=== PATIENT | male | born 2000 | race Two or more races ===

== ENCOUNTER 2025-03-21 07:05 | Emergency (ER) | payer OTHER ==
[2025-03-21 07:12] VITALS: RESP 18
[2025-03-21] MEDS: IBUPROFEN 800 MG TAB PO STA (07:35)
[2025-03-21] MEDS: DEXAMETHASONE SOD PHOSPHATE 4 MG/ML 1 ML VIAL IM STA (07:35)
[2025-03-21] MEDS: HYDROcodone/APAP 5-325MG 1 EACH TAB PO STA (07:36)
--- NOTE | 2025-03-21 07:44 | ED ---
General Adult HPI - General Chief complaint: Back Pain/Injury Stated complaint: Back pain, right leg pain Time Seen by Provider: 03/21/25 07:15 Source: patient, RN notes reviewed, old records reviewed Mode of arrival: wheelchair Limitations: no limitations - History of Present Illness Initial comments: 24-year-old male presents emergency department complaining of back pain with radiation down the posterior right leg. 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 No complications since. States he does have a history of having this type of sciatica pain approximately 3 to 4 years ago. States his lower back pain with radiation into his right buttock and down the posterior aspect of his right leg. Denies any saddle paresthesias. Denies any urinary or bowel incontinence or retention. Denies lower extremity paralysis. States pain is worse with flexion of the right hip. No obvious injuries. Has been present for the last 4 days or so and believes it may have been attributed to him sleeping on an air mattress. Presents for further evaluation at this time. He has attempted stretching at home without much improvement.Patient states back pain is atraumatic. - Related Data Previous Rx's Medication Instructions Recorded Cyclobenzaprine [Flexeril] 5 mg PO TID PRN 7 Days #21 tablet 03/21/25 Allergies Allergy/AdvReac Type Severity Reaction Status Date / Time No Known Allergies Allergy Verified 03/21/25 07:08 Review of Systems ROS Statement: Those systems with pertinent positive or pertinent negative responses have been documented in the HPI. Review of Systems: CONST: Denies fever EYES: Denies blurry vision ENT: Denies nasal congestion C/V: Denies Chest pain RESP: Denies shortness of breath GI: Denies abdominal pain : Denies dysuria SKIN: Denies rash. MSK: Endorses back pain NEURO: Denies headache ROS Other: All systems not noted in ROS Statement are negative. Past Medical History Additional Past Medical History / Comment(s): Tetrology of Will Additional Past Surgical History / Comment(s): 3 open heart Past Psychological History: No Psychological Hx Reported Smoking Status: Never smoker Past Alcohol Use History: None Reported Past Drug Use History: None Reported General Exam - General Exam Comments Initial Comments: General: Appears in mild distress secondary to back pain. HEAD: Normal with no signs of head trauma. EYES: EOMI. ENT: Hearing grossly intact. RESPIRATORY: No respiratory distress. Clear breath sounds bilaterally. C/V: Regular rate and rhythm. S1 and S2 auscultated. ABD: Abdomen is nondistended. EXT: No obvious deformity. No midline cervical, thoracic, lumbar spine tenderness to palpation. Tenderness palpation over the paraspinal muscles on the right of the lower lumbar spine. Pain with flexion of the right hip both passive and active. Neurovascular intact throughout. No obvious step-offs or deformities of the spine. Pelvis is stable. SKIN: No rashes or lesions observed on exposed skin. NEURO: Alert and oriented. Limitations: no limitations Course Vital Signs 03/21/25 07:08 Temperature 97.9 F Pulse Rate 79 Respiratory 18 Rate Blood Pressure 105/76 O2 Sat by Pulse 98 Oximetry Medical Decision Making - Medical Decision Making Was pt. sent in by a medical professional or institution (, PA, [employer], urgent care, hospital, or halfway...) When possible be specific @ -No Did you speak to anyone other than the patient for history (EMS, parent, family, police, friend...)? What history was obtained from this source @ -No Did you review nursing and triage notes (agree or disagree)? Why? @ -I reviewed and agree with nursing and triage notes Were old charts reviewed (outside hosp., previous admission, EMS record, old EKG, old radiological studies, urgent care reports/EKG's, halfway records)? Report findings @ -No old charts were reviewed Differential Diagnosis (chest pain, altered mental status, abdominal pain women, abdominal pain men, vaginal bleeding, weakness, fever, dyspnea, syncope, headache, dizziness, GI bleed, back pain, seizure, CVA, palpatations, mental health, musculoskeletal)? @ -Sciatica, lumbar strain, lumbar fracture, cauda equina syndrome. This list is not all inclusive. EKG interpreted by me (3pts min.). @ -None done X-rays interpreted by me (1pt min.). @ -Lumbar spine x-ray shows bilateral facet arthropathy at L5-S1 with no obvious acute injury. CT interpreted by me (1pt min.). @ -None done U/S interpreted by me (1pt. min.). @ -None done What testing was considered but not performed or refused? (CT, X-rays, U/S, labs)? Why? @ -None What meds were considered but not given or refused? Why? @ -None Did you discuss the management of the patient with other professionals (cuca pappas i.e. , IMAN, [employer], lab, RT, psych nurse, social media manager, stereo plotter operator, teacher, risk control officer, mattress spring encaser)? Give summary @ -No Was smoking cessation discussed for >3mins.? @ -No Was critical care preformed (if so, how long)? @ -No Were there social determinants of health that impacted care today? How? (Homelessness, low income, unemployed, alcoholism, drug addiction, transportation, low edu. Level, literacy, decrease access to med. care, skilled nursing, rehab)? @ -No Was there de-escalation of care discussed even if they declined (Discuss DNR or withdrawal of care, Hospice)? DNR status @ -No What co-morbidities impacted this encounter? (DM, HTN, Smoking, COPD, CAD, Cancer, CVA, ARF, Chemo, Hep., AIDS, mental health diagnosis, sleep apnea, morbid obesity)? @ -None Was patient admitted / discharged? Hospital course, mention meds given and route, prescriptions, significant lab abnormalities, going to OR and other pertinent info. @ -Based on patient's presentation and physical exam, presents emergency department complaining of what appears to be right-sided sciatica pain. We will obtain x-rays of the lumbar spine. This was an atraumatic injury likely associated with how he was sleeping 4 days ago. Does have a history of this. He will be administered an IM injection of Decadron as well as oral [place] and ibuprofen. He was in agreement this plan. Vitals are within acceptable limits. No red flag symptoms to suggest cauda equina syndrome. Lumbar spine x-ray shows bilateral facet arthropathy at L5-S1 with no obvious acute injury. I updated the patient. On reevaluation, patient is having some relief. I recommended rest, ice, as well as continued use of [id number] ibuprofen and Tylenol at home. Patient will be given a starter pack of Tylenol 3's as well as prescription for muscle relaxers. Patient was in agreement this plan. Discussed at length with the patient that if this becomes a persistent issue, he should follow-up with a specialist that will provide him with the early breastfeeding care specialist for the on-call group, Dr. Perkins. Dr. Bell is on city call today for that group but is not a early breastfeeding care specialist. He can also start with his PCP. Recommended stretching. Discussed the red flag symptoms. He was in agreement this plan. I also counseled him on weight loss which may improve his symptoms overall. I will provide the patient with a prescription for Flexeril. I instructed the patient to follow up with their PCP in the next 1-3 days. I provided contact information for follow up with orthopedics. I explained that the patient should return to the emergency department if they experience any worsening symptoms. Strict return precautions were discussed with the patient. The patient expressed understanding of these instructions. I answered all questions that the patient had. The patient was discharged home in good condition with their prescriptions and follow up information. Undiagnosed new problem with uncertain prognosis? @ -No Drug Therapy requiring intensive monitoring for toxicity (Heparin, Nitro, Insulin, Cardizem)? @ -No Were any procedures done? @ -No Diagnosis/symptom? @ -Sciatica of the right lower extremity Acute, or Chronic, or Acute on Chronic? @ -Acute Uncomplicated (without systemic symptoms) or Complicated (systemic symptoms)? @ -Uncomplicated Side effects of treatment? @ -None Exacerbation, Progression, or Severe Exacerbation] @ -No Poses a threat to life or bodily function? @ -Unlikely at this time Disposition Clinical Impression: Sciatica Disposition: HOME SELF-CARE Condition: Good Instructions (If sedation given, give patient instructions): Sciatica (ED) Additional Instructions: Continue stretches, as well as use of the OTC medications for home. Your diagnosis is sciatica. If this becomes a persistent issue, follow-up with PCP as well as possibly orthopedic surgery. Return to the ER if any worsening symptoms. Return to the ER if you begin experiencing urinary or bowel incontinence or retention, paralysis of the lower extremities, or numbness of the groin. Prescriptions: Cyclobenzaprine [Flexeril] 5 mg PO TID PRN 7 Days #21 tablet PRN Reason: Pain Is patient prescribed a controlled substance at d/c from ED?: No Referrals: Nonstaff,Physician [Primary Care Provider] - 1-2 days Christian Perkins DO [Doctor of Osteopathic Medicine] - 1-2 days Forms: Area PCPs Time of Disposition: 08:02
--- NOTE | 2025-03-21 07:57 | XR ---
EXAMINATION TYPE: XR lumbar spine 2 or 3V DATE OF EXAM: 03/21/2025 CLINICAL HISTORY: right sciatica, low back pain TECHNIQUE: Three views of the lumbar spine are submitted. COMPARISON: None. FINDINGS: There are 5 lumbar type vertebral bodies identified. The lumbar spine shows satisfactory alignment w ithout evidence of acute fracture or dislocation. Vertebral body heights are within normal limits. Disc spaces are within normal limits. Bilateral facet arthropathy L5-S1. The overlying soft tissue ap pears unremarkable. IMPRESSION: 1. No acute fracture or dislocation is seen in the lumbar spine. 2. Bilateral facet arthropathy at L5-S1. [facility], , 03/21/2025 7:55 AM
[2025-03-21 08:48] VITALS: BP 109/80; PULSE 82; TEMP 98
[2025-03-21] MEDS: ACET/COD 300 MG/30 MG STARTER PACK TAB BTL PO STA (08:50)
== END 2025-03-21 10:50 | disposition home or self-care (01) ==
LOC: EC 07:05
DX: M54.31 Sciatica, right side (principal)
CPT/HCPCS: 72100; 99283; 96372; J1100